=== PATIENT | male | born 1985 | race Two or more races ===

== ENCOUNTER 2018-03-30 23:38 | Emergency (ER) | payer MEDICAID ==
[~2018-03-30] VITALS: Ht 170.2 cm; Wt 89.0 kg
[2018-03-30] MEDS ORDERED: GABA300C10 PO (23:46)
[2018-03-30] MEDS ORDERED: HYDR-3307 PO (23:46)
[2018-03-30] MEDS ORDERED: MORPHINE SULFATE 4 MG/ML, 1ML ONE (23:49)
[2018-03-31] MEDS ORDERED: MORPHINE SULFATE 4 MG/ML, 1ML IVPush PRN
[2018-03-31 00:11] LABS: BASOPHILS # (AUTO) 0.06 x10^3/uL (0-0.1); BASOPHILS % (AUTO) 1 % (0-1); EOSINOPHILS # (AUTO) 0.23 x10^3/uL (0-0.4); EOSINOPHILS % (AUTO) 3 % (1-7); LYMPHOCYTES # (AUTO) 2.31 x10^3/uL (1-3.4); LYMPHOCYTES % (AUTO) 30 % (22-44); MD NO; MEAN CORPUSCULAR HEMOGLOBIN 29.3 pg (27.5-34.5); MEAN CORPUSCULAR HGB CONC 33.9 g/dL (33.2-36.2); MEAN CORPUSCULAR VOLUME 86.3 fL (81-97); MEAN PLATELET VOLUME 7.6 fL (7.4-10.4); MONOCYTES # (AUTO) 0.55 x10^3/uL (0.2-0.8); MONOCYTES % (AUTO) 7 % (2-9); NEUTROPHILS # (AUTO) 4.46 x10^3/uL (1.8-6.8); NEUTROPHILS % (AUTO) 59 % (42-75); PLATELET COUNT 325 x10^3/uL (130-400); RED BLOOD COUNT 5.06 x10^6/uL (4.38-5.82); RED CELL DISTRIBUTION WIDTH 13.2 % (9.4-14.8)
[2018-03-31 00:18] LABS: INTERNATIONAL NORMALIZED RATIO 1.01 (0.93-1.1); PROTHROMBIN TIME 10.7 Seconds (9.6-11.5)
[2018-03-31 00:19] LABS: ALANINE AMINOTRANSFERASE 43 U/L (12-78); ALBUMIN 4.1 g/dL (3.4-5.0); ANION GAP 7 mmol/L (5-15); CALCIUM 9.2 mg/dL (8.5-10.1); CHLORIDE 101 mmol/L (98-107); CREATININE 0.93 mg/dL (0.7-1.3)
[2018-03-31 00:22] LABS: ALKALINE PHOSPHATASE 72 U/L (45-117); BILIRUBIN,TOTAL 0.2 mg/dL (0.2-1.0); TOTAL PROTEIN 7.9 g/dL (6.4-8.2)
[2018-03-31 01:12] VITALS: BP 135/85
== END 2018-03-31 01:14 | disposition home or self-care (01) ==
LOC: ED 23:54
DX: K92.1 Melena (principal); R10.13 Epigastric pain
CPT/HCPCS: 36415; 80053; 83690; 85025; 85610; 85730; 96374; 99283

== ENCOUNTER 2018-07-30 08:08 | Emergency (ER) | payer MEDICAID ==
[~2018-07-30] VITALS: Ht 170.2 cm; Wt 97.0 kg
[~2018-07-30 08:08] MED LIST: GABA300C10 PO; HYDR-3307 PO
[2018-07-30 08:11] VITALS: BP 149/83
--- NOTE | 2018-07-30 08:53 | NUR ---
BLADDER SCAN 22ML
[2018-07-30 08:55] LABS: MEAN CORPUSCULAR HEMOGLOBIN 28.2 pg (27.5-34.5); MEAN CORPUSCULAR HGB CONC 33.6 g/dL (33.2-36.2); MEAN PLATELET VOLUME 7.2 fL (7.4-10.4); PLATELET COUNT 268 x10^3/uL (130-400); RED BLOOD COUNT 5.07 x10^6/uL (4.38-5.82); RED CELL DISTRIBUTION WIDTH 13.2 % (9.4-14.8)
[2018-07-30 08:59] LABS: ALBUMIN 3.9 g/dL (3.4-5.0); ANION GAP 5 mmol/L (5-15); CALCIUM 8.7 mg/dL (8.5-10.1); CHLORIDE 108 mmol/L (98-107); CREATININE 0.77 mg/dL (0.7-1.3)
[2018-07-30 09:12] LABS: CULTURE INDICATED? NO; MICROSCOPIC NOT IND
[2018-07-30 10:03] LABS: BASOPHILS # (AUTO) 0.02 x10^3/uL (0-0.1); BASOPHILS % (AUTO) 1 % (0-1); EOSINOPHILS # (AUTO) 0.22 x10^3/uL (0-0.4); EOSINOPHILS % (AUTO) 4 % (1-7); LYMPHOCYTES # (AUTO) 1.59 x10^3/uL (1-3.4); LYMPHOCYTES % (AUTO) 31 % (22-44); MD SCAN; MONOCYTES # (AUTO) 0.36 x10^3/uL (0.2-0.8); MONOCYTES % (AUTO) 7 % (2-9); NEUTROPHILS # (AUTO) 2.92 x10^3/uL (1.8-6.8); NEUTROPHILS % (AUTO) 57 % (42-75)
[2018-07-30] MEDS ORDERED: LIDOCAINE-MPF 1%, 2ML ONE (10:16)
[2018-07-30] MEDS ORDERED: CEFTRIAXONE 250 MG ONE (10:17)
[2018-07-30] MEDS ORDERED: AZITHROMYCIN 250 MG TABLET ONE (10:17)
[2018-07-30] MEDS ORDERED: AZITHROMYCIN 500 MG TABLET PO ONE (10:30)
[2018-07-30] MEDS ORDERED: CEFTRIAXONE 1,000 MG IM ONE (10:30)
== END 2018-07-30 10:29 | disposition home or self-care (01) ==
LOC: ED 09:25
DX: N34.2 Other urethritis (principal)
CPT/HCPCS: 36415; 80048; 81003; 82040; 85025; 87491; 87591; 96372; 99283; J0696

== ENCOUNTER 2018-10-13 04:21 | Emergency (ER) | payer MEDICAID ==
[~2018-10-13] VITALS: Ht 170.2 cm; Wt 93.0 kg
--- NOTE | 2018-10-13 04:41 | NUR ---
PT TO RADIOLOGY AT THIS TIME.
--- NOTE | 2018-10-13 04:57 | NUR ---
URINE COLLECTED AND SENT
[2018-10-13 05:07] LABS: CULTURE INDICATED? YES; MICROSCOPIC INDICATED
[2018-10-13] MEDS ORDERED: AZITHROMYCIN 250 MG TABLET ONE (05:43)
[2018-10-13] MEDS ORDERED: CEFTRIAXONE 250 MG ONE (05:43)
[2018-10-13] MEDS ORDERED: AZITHROMYCIN 500 MG TABLET PO ONE (06:00)
[2018-10-13] MEDS ORDERED: CEFTRIAXONE 250 MG IM ONE (06:00)
== END 2018-10-13 05:56 | disposition home or self-care (01) ==
LOC: ED 05:46
DX: N39.0 Urinary tract infection, site not specified (principal); N34.2 Other urethritis; F17.200 Nicotine dependence, unspecified, uncomplicated
CPT/HCPCS: 73610; 81001; 87077; 87086; 96372; 99284; J0696; 87186